=== PATIENT | female | born 1995 | race Caucasian/White ===

== ENCOUNTER 2020-11-09 02:11 | Outpatient (CLI) | payer OTHER, SELFPAY ==
[2020-11-09 11:08] LABS: Source Nasal/Nares
[2020-11-09 13:57] LABS: COVID-19 PCR Negative (Negative)
== END 2020-11-09 02:12 | disposition home or self-care (01) ==
LOC: LBO 02:11
PROVIDERS: PCP Nurse Practitioner Family; Visit Provider Obstetrics & Gynecology
DX: Z20.822 Contact with and (suspected) exposure to COVID-19 (principal); Z01.818 Encounter for other preprocedural examination
CPT/HCPCS: 87635

== ENCOUNTER 2020-11-09 03:05 | Outpatient (CLI) | payer OTHER, SELFPAY ==
[2020-11-09 08:29] LABS: Abs Immature Grans 0.03 10^3/uL (0.0-0.06); Absolute Basophil Count 0.05 10^3/uL (0.0-0.2); Absolute Eosinophil Count 0.08 10^3/uL (0.0-0.7); Absolute Lymphocyte Count 1.16 10^3/uL (1.2-3.4); Absolute Monocyte Count 0.71 10^3/uL (0.1-0.8); Absolute Neutrophil Count 5.63 10^3/uL (1.2-6.7); Basophils % 0.7; HCT 46.3 % (36.0-46.0); HGB 15.3 g/dL (11.2-15.7); Immature Grans % 0.4; Lymphocytes % 15.1; MCH 30.4 pg (27.0-33.0); MCV 91.9 fL (80-95); MPV 9.6 fL (8.0-11.0); Monocytes % 9.3; Neutrophils % 73.5; Nucleated RBC 0 %; Platelet Count 208 10^3/uL (130-400); RBC 5.04 10^6/uL (3.93-5.22); RDW 12.5 % (11.7-14.6); RDW-SD 42.5 fL; WBC 7.66 10^3/uL (4.4-10.8)
[2020-11-09 08:43] LABS: Hemoglobin A1C 5.2 % (<5.7)
[2020-11-09 09:33] LABS: TSH 1.75 uIU/mL (0.36-3.74)
== END 2020-11-09 03:06 | disposition home or self-care (01) ==
LOC: LBO 03:05
PROVIDERS: PCP Nurse Practitioner Family; Visit Provider Obstetrics & Gynecology
DX: N83.201 Unspecified ovarian cyst, right side (principal); Z13.1 Encounter for screening for diabetes mellitus; Z13.220 Encounter for screening for lipoid disorders; Z01.818 Encounter for other preprocedural examination; Z01.812 Encounter for preprocedural laboratory examination
CPT/HCPCS: 36415; 86850; 86900; 86901; 83036; 84443; 85025

== ENCOUNTER 2020-11-11 06:10 | Day surgery (SDC) | payer OTHER, SELFPAY ==
[2020-11-11] VITALS (9 sets, daily range): BP systolic 99–128; BP diastolic 60–86; PULSE 77–137; RESP 11–25; TEMP 36.1–37.1; O2SAT 98–100; BMI 23.8
--- NOTE | 2020-11-11 07:10 | W.ANESPRE ---
General Info Date of Service Date Performed: 11/11/20 Height: 5 ft 1 in Weight: 57.3 kg Body Mass Index (BMI): 23.8 Surgical Procedure: Operation Date: 11/11/20 07:40 Proposed Procedures Side Surgeon p Ovarian Cystectomy Laparoscopic Right Johana Paz DO Meds Allergies and Home Medications Allergies Allergy/AdvReac Type Severity Reaction Status Date / Time No Known Allergies Allergy Verified 11/11/20 06:22 Home Medication Medication Instructions Recorded norethindrone-e.estradiol-iron 1 tab-cap PO DAILY tab-cap 07/12/17 [Estrostep Fe-28 Tablet] naproxen 500 mg PO BID PRN #30 tab-cap 10/04/17 Current Visit Medications: Current Medications Generic Name Dose Route Start Last Admin Trade Name Freq PRN Reason Stop Dose Admin Ringer's Solution 1,000 mls @ 125 mls/hr 11/11/20 06:00 IV 12/10/20 23:59 INFUSION DWAINE IV Miscellaneous Supplies 1 each 11/11/20 06:00 Iv Access IV 12/10/20 23:59 DIRECTED DWAINE Sodium Chloride 0 ml 11/11/20 06:00 Normal Saline Flush 10 Ml Syr IV 12/10/20 23:59 PRN PRN Sodium Chloride 0 ml 11/11/20 06:00 Normal Saline 10 Ml Vial IJ 12/10/20 23:59 DIRECTED PRN Sterile Water 0 ml 11/11/20 06:00 Water,Injection,Sterile 10 Ml Vial IJ 12/10/20 23:59 DIRECTED PRN PFSH Active Problems Active Problems: Problem Status Onset Code Elevated blood pressure reading in office without diagnosis of hypertension R03.0 Right ovarian cyst N83.201 Generalized anxiety disorder F41.1 Screening cholesterol level Z13.220 Diabetes mellitus screening Z13.1 Encounter for annual physical exam Z00.00 Hearing disorder 10/ H91.90 Medical History Medical History Elevated blood pressure reading in office without diagnosis of hypertension Right ovarian cyst Tobacco Smoking/Tobacco Use Status: Never Alcohol Alcohol Intake: current Alcohol intake frequency: holidays/special occasions only Substance Use Substance use: Never Substance use type: does not use Vital Signs and Lab Results Vital Signs Most Recent Vital Signs in EMR: Most Recent Vital Signs Temp Pulse Resp BP Pulse Ox 37.1 C 137 H 16 128/82 98 11/11/20 06:23 11/11/20 06:23 11/11/20 06:23 11/11/20 06:23 11/11/20 06:23 Lab Results Blood Type / Crossmatch: Patient ABO/Rh A Positive 11/09/20 08:17 11/09/20 Antibody Screen NEGATIVE 11/09/20 08:17 11/09/20 Complete Blood Count: White Blood Count 7.66 10^3/uL (4.4-10.8) 11/09/20 08:17 11/09/20 Red Blood Count 5.04 10^6/uL (3.93-5.22) 11/09/20 08:17 11/09/20 Hemoglobin 15.3 g/dL (11.2-15.7) 11/09/20 08:17 11/09/20 Hematocrit 46.3 % (36.0-46.0) H 11/09/20 08:17 11/09/20 Platelet Count 208 10^3/uL (130-400) 11/09/20 08:17 11/09/20 Complete Metabolic Panel: Hemoglobin A1c 5.2 % (<5.7) 11/09/20 08:17 11/09/20 Liver Function Panel: No Data to Display Coagulation Panel: No Data to Display Cardiac Panel: No Data to Display Arterial Blood Gas: No Data to Display Venous Blood Gas: No Data to Display Pancreas Panel: No Data to Display Thyroid Panel: Thyroid Stimulating Hormone (TSH) 1.75 uIU/mL (0.36-3.74) 11/09/20 08:17 11/09/20 Infectious Disease: Coronavirus (COVID-19)(PCR) Negative (Negative) 11/09/20 08:14 11/09/20 Coronavirus 2019 Source Nasal/Nares 11/09/20 08:14 11/09/20 Blood Cultures: No Data to Display Toxicology Panel: No Data to Display Panel: No Data to Display Anesthesia Assessment and Plan Anesthesia History Personal History: No History of Anesthesia Complications Family History: No Family History of Anesthesia Complications Exercise Tolerance Exercise Tolerance: Metabolic Equivalents>4 Pertinent Negatives Pertinent Negatives: No Symptoms of GERD, No Major Cardiovascular Symptoms or Complaints, No Major Pulmonary Symptoms or Complaints and No History of CVA/TIA Cardiac & Pulmonary Exam Cardiac Exam: Normal S1/S2 Heart Sounds Pulmonary Exam: Clear Bilateral Breath Sounds Airway Exam Known Difficult Airway: No Mallampati Class: 2 Mouth Opening: Normal (> 3cm) Thyromental Distance: Greater than 3 cm Neck Range of Motion: Full ROM Neck Circumference: Normal Teeth Condition: Normal Dentition ASA Classification ASA Score: ASA 1 Emergency Case?: No NPO Status NPO Status: NPO Clears >2 hours, Solids >8 hours Status Status: Negative HCG Anesthesia Plan Resuscitation Status: Full Code Anesthesia Technique: General Anesthesia Airway Planned: Endotracheal Tube Monitors Used: Standard Monitors
[2020-11-11] MEDS: Lactated Ringers 1,000 ML 125 ML IV (07:11)
[2020-11-11] MEDS: Bupivacaine 0.5% Pres-Free 30 ML VIAL (08:30)
--- NOTE | 2020-11-11 09:15 | ROE_ITS ---
Date of service: 11/11/20 Time of Service: 09:15 Operative Note Operative Note DATE OF PROCEDURE: 11/11/20 PRE-OP DIAGNOSIS: Right ovarian cyst, suspect dermoid POST-OP DIAGNOSIS: same PROCEDURE: Operative laparoscopy with right ovarian cystectomy SURGEON: Johana Paz ASSISTING SURGEON: Luisana Gant ANESTHESIA TYPE: General LMA/ETT Refer to Anesthesia Record ESTIMATED BLOOD LOSS: 50 PATHOLOGY: other (Right ovarian cyst) COMPLICATIONS: None Patient was transported to: PACU Patient's condition: stable Indications: 5 x 8 cm right complex ovarian cyst suspicious for dermoid with symptoms Findings: Normal-appearing tubes, uterus, left ovary normal. Right ovary enlarged, approximately 8 cm in greatest dimension Procedure Description: Patient was taken the operating suite with an IV running where she is placed in the dorsal supine position and endotracheal intubation performed for the administration of general anesthesia with ease. She was then placed in the modified dorsolithotomy position in [facility]. Exam under anesthesia revealed a right adnexal fullness. Uterus is midline and mobile. Patient was prepped and draped in the usual sterile fashion. Ramachandran catheter inserted for continuous bladder drainage. At this point speculum was inserted to the vaginal vault and a single-tooth tenaculum used to grasp the anterior lip of the cervix. A Nebula uterine manipulator was placed within. At this point speculu m was removed and attention was returned to the abdomen. After infiltration with half percent Marcaine and infraumbilical skin incision was made. The anterior abdominal wall was elevated. Orogastric tube had been placed for removal of gastric contents. A varies needle was directly inserted into the abdomen and with CO2 gas to a maximum pressure of 15 mmHg and pneumoperitoneum was created. Once pneumoperitoneum was created a bladeless 1012 sleeve and trocar, Optiview, was placed into the abdomen under direct visualization. At this point inspection of the abdomen was undertaken uterus was midline and mobile. Left fallopian tube and ovary are normal. Right fallopian tube is normal. Right ovary is significantly enlarged approximately 8 cm and freely mobile. There is no evidence of pelvic adhesions or endometriosis. At this point a second and third right and left lower quadrant trocar site were placed under direct visualization after infiltration of half percent Marcaine. Attention was turned to the right ovary which was elevated and incised with cautery. In a meticulous fashion with blunt and sharp dissection along with [place] dissection the right ovarian cyst was shelled out from the underlying ovarian tissue. Base of the cyst that cystectomy at the ovary was inspected, cauterized to achieve hemostasis. At this point an Endopouch was placed into the abdomen and the free-floating ovarian cyst was removed to the anterior abdominal wall. Due to the size of the ovarian cyst, after the Endopouch was exteriorized. An incision was made into the cyst and cyst fluid removed in order to collapse the cyst and remove it from the anterior abdominal port. There was noted to be fat and hair consistent with dermoid. There was no spillage intra-abdominally nor was there is spillage into the subcutaneous tissue. At this point CO2 gas was resumed for recreation of pneumoperitoneum. The uterus was elevated. The ovarian cyst base was inspected and found to be hemostatic. The abdomen was i rrigated with copious amounts of normal saline. Again ovarian cyst base inspected and found to be hemostatic. At this point the procedure was terminated she okay to gas was removed and all ports were also removed. The infraumbilical fascial incision was closed using 0 Vicryl suture. Skin edges were reapproximated and sterile dressings placed. Hulka uterine manipulator and Ramachandran catheter were removed and the patient was returned to the supine position. She woke from anesthesia with ease and was taken recovery room in stable condition. EBL: 50 cc Complications: None apparent Pathology: Right ovarian cyst for examination.
--- NOTE | 2020-11-11 09:58 | OVAR_PTH ---
PATIENT: Roxane Ramsey LOC: [facility] U#:[id number] AGE/SX: 24/F ROOM: RE11/11/[address]: Johana Paz DO : 1995 BED: DIS: 11/11/2020 SPEC #: [id number] RECD: 11/11/20 12:25 STATUS: CODEY REQ #: [id number] RAMSEY: 11/11/20 09:[address]: Johana Paz DEPT: Surgical Specimen RECD BY: Zoë Gould ENTERED: 11/11/20 12:26 SP TYPE: FELICITAS MAHAJAN DR: Rafael Cronin NP Tissues: 1 - OVARY BIOPSY Procedures: GROSS AND MICRO LEVEL 4 Comments: [id number]
[2020-11-11] MEDS: fentaNYL 100 MCG/2 ML VIAL IVP (10:10)
--- NOTE | 2020-11-11 11:35 | W.ANESPOSTOP ---
Postoperative Evaluation Date, Time and Location Date Performed: 11/11/20 Time Performed: 11:36 Patient Location: Day Surgery Unit Vital Signs Most Recent Imported Vital Signs: Most Recent Vital Signs Temp Pulse Resp BP Pulse Ox 36.2 C L 99 H 18 123/80 100 11/11/20 11:10 11/11/20 11:10 11/11/20 11:10 11/11/20 11:10 11/11/20 11:10 Pain Score Most Recent Pain Score: Most Recent Pain Score Pain Level 2 11/11/20 11:10 Assessment Mental Status: Awake (Alert & Oriented to Patient Baseline) Airway and Respiratory Function: Patent airway with normal (patient baseline) respiratory exam Cardiovascular Function: Hemodynamically Stable Hydration Status: Adequately Hydrated Nausea & Vomiting: No Nausea or Vomiting Pain: Pain is tolerable per patient Peripheral Nerve Block: Patient did not receive a nerve block
== END 2020-11-11 12:07 | disposition home or self-care (01) ==
PROVIDERS: PCP Nurse Practitioner Family; Visit Provider Obstetrics & Gynecology
PROC: (CPT 58662; principal; 2020-11-11 07:30)
DX: D27.0 Benign neoplasm of right ovary (principal); Z98.890 Other specified postprocedural states
CPT/HCPCS: 58662; 88305; J1100; J1885; J2001; J2250; J2405; J2704; J3010

== ENCOUNTER 2021-03-31 03:00 | Outpatient (CLI) | payer OTHER, SELFPAY ==
[2021-04-01 10:06] LABS: COVID-19 RT-PCR UVMMC Result Negative (Negative)
== END 2021-03-31 03:01 | disposition home or self-care (01) ==
LOC: LBO 03:01
PROVIDERS: PCP Nurse Practitioner Family; Visit Provider Nurse Practitioner Family
DX: Z20.822 Contact with and (suspected) exposure to COVID-19 (principal)
CPT/HCPCS: U0003

== ENCOUNTER 2022-05-13 11:43 | Outpatient (REF) | payer OTHER, SELFPAY ==
--- NOTE | 2022-05-13 08:20 | PAPFT_PTH ---
PATIENT: Roxane Ramsey LOC: [facility] U#:[id number] AGE/SX: 26/F ROOM: RE05/13/[address]: Johana Paz DO : 1995 BED: DIS: 05/13/2022 SPEC #: [id number] RECD: 05/13/22 12:56 STATUS: CODEY REQ #: [id number] RAMSEY: 05/13/22 08:[address]: Johana Paz DEPT: [facility] Cytology RECD BY: Zoë Gould ENTERED: 05/13/22 12:56 SP TYPE: PAPFT OTHR DR: Rafael Cronin, LAZARO Tissues: 1 - CX/ENDOCX FOR PAP SMEARS Procedures: PAP THIN PREP/UVM Screening Comments: [id number] (CHLAMYDIA/GC)
[2022-05-16 12:57] LABS: Chlamydia Result Negative (Negative); GC Result Negative (Negative)
== END 2022-05-13 11:44 | disposition home or self-care (01) ==
LOC: LBN 11:43
PROVIDERS: PCP Nurse Practitioner Family; Visit Provider Obstetrics & Gynecology
DX: Z12.4 Encounter for screening for malignant neoplasm of cervix (principal); Z11.3 Encounter for screening for infections with a predominantly sexual mode of transmission
CPT/HCPCS: 87491; 87591; 88142

== ENCOUNTER 2023-02-10 01:28 | Outpatient (CLI) | payer OTHER, SELFPAY ==
[2023-02-10 10:07] LABS: ESR 9 mm/hr (0-20)
[2023-02-10 10:31] LABS: Uric Acid 3.3 mg/dL (2.6-6.0)
[2023-02-10 17:47] LABS: Rheumatoid Factor <8.6 IU/mL (<12.0)
[2023-02-13 14:57] LABS: ANA Interpretation Negative (Negative)
== END 2023-02-10 01:29 | disposition home or self-care (01) ==
LOC: LBO 01:29
PROVIDERS: PCP Nurse Practitioner Family; Visit Provider Family Medicine
DX: I73.00 Raynaud's syndrome without gangrene (principal)
CPT/HCPCS: 36415; 85652; 84550; 86038; 86431

== ENCOUNTER 2024-07-02 04:01 | Outpatient (CLI) | payer OTHER, SELFPAY ==
[2024-07-02 16:00] LABS: Panorama Kit Sent via Fed Ex
[2024-07-02 16:22] LABS: Abs Immature Grans 0.05 10^3/uL (0.0-0.06); Absolute Monocyte Count 0.87 10^3/uL (0.1-0.8); Basophils % 0.4 %; Eosinophils % 0.4 %; HCT 39.7 % (36.0-46.0); HGB 13.3 g/dL (11.2-15.7); Immature Grans % 0.4 %; Lymphocytes % 16.1 %; MCH 31.4 pg (27.0-33.0); MCHC 33.5 % (32.0-36.0); MCV 94 fL (80-95); Monocytes % 7.8 %; Neutrophils % 74.9 %; Platelet Count 239 10^3/uL (130-400); RBC 4.23 10^6/uL (3.93-5.22); RDW 13.2 % (11.7-14.6); RDW-SD 45.5 fL; WBC 11.17 10^3/uL (4.4-10.8)
[2024-07-02 16:41] LABS: Absolute Basophil Count 0.04 10^3/uL (0.0-0.2); Absolute Eosinophil Count 0.04 10^3/uL (0.0-0.7); Absolute Neutrophil Count 8.37 10^3/uL (1.2-6.7)
[2024-07-02 17:26] LABS: ALT 25 U/L (14-59); AST 17 U/L (15-37); Albumin 3.4 g/dL (3.4-5.0); Alkaline Phosphatase 52 U/L (46-116); BUN 11 mg/dL (7-18); Bilirubin, Total 0.2 mg/dL (0.2-1.0); CREATININE 0.7 mg/dL (0.55-1.02); Calcium 9.1 mg/dL (8.5-10.1); Chloride 105 mmol/L (98-107); Estimated GFR 122.25 (mL/min/1.73m2); Glucose 105 mg/dL (74-106); Potassium 3.6 mmol/L (3.5-5.1); Sodium 139 mmol/L (136-145); Total Protein 7.4 g/dL (6.4-8.2)
[2024-07-04 08:41] LABS: Hepatitis B Surface Ag Negative (Negative)
[2024-07-04 09:25] LABS: Hepatitis C Ab w Rflx HCV PCR Negative (Negative)
[2024-07-04 10:11] LABS: HIV-1/2 Ag & Ab Screen Negative (Negative)
[2024-07-04 11:30] LABS: Rubella IgG Ab (UVM) Positive (See Note); Varicella IgG Antibody Positive (See Note)
[2024-07-04 14:23] LABS: Chlamydia Result Negative (Negative); GC Result Negative (Negative)
[2024-07-05 17:40] LABS: Syphilis IgG w/Reflex Nonreactive (Nonreactive)
[2024-07-12 00:41] LABS: Specimen WB Whole Blood
[2024-07-18 16:34] LABS: Result Summary NEGATIVE; Specimen WB Whole Blood
== END 2024-07-02 04:02 | disposition home or self-care (01) ==
LOC: LBO 04:01
PROVIDERS: PCP Nurse Practitioner Family; Visit Provider Advanced Practice Midwife
DX: Z34.91 Encounter for supervision of normal pregnancy, unspecified, first trimester (principal); R03.0 Elevated blood-pressure reading, without diagnosis of hypertension
CPT/HCPCS: 36415; 80053; 81220; 81222; 81329; 86787; 86803; 86850; 86900; 86901; 87340; 87389; 87491; 87591; 85025; 86762; 86780

== ENCOUNTER 2024-07-02 14:20 | Outpatient (REF) | payer OTHER, SELFPAY ==
[2024-07-02 17:22] LABS: COMMENT (LAB VIEW ONLY) 18.49 mg/dL
[2024-07-02 17:24] LABS: PROTEIN < 6.0 mg/dL
== END 2024-07-02 14:21 | disposition home or self-care (01) ==
LOC: LBN 14:20
PROVIDERS: PCP Nurse Practitioner Family; Visit Provider Advanced Practice Midwife
DX: Z34.91 Encounter for supervision of normal pregnancy, unspecified, first trimester (principal); R03.0 Elevated blood-pressure reading, without diagnosis of hypertension
CPT/HCPCS: 82565; 84156; 87086

== ENCOUNTER 2024-10-19 10:25 | Outpatient (CLI) | payer OTHER, SELFPAY ==
[2024-10-19 10:47] VITALS: BP 116/76; PULSE 88; TEMP 37.1
[2024-10-19 10:51] VITALS: BP 116/76; PULSE 129
[2024-10-19 11:42] LABS: Glucose Negative (Negative)
--- NOTE | 2024-10-19 12:20 | W.OBNST ---
Date of service: 10/19/24 Time of Service: 12:21 NST Evaluation Reason for NST Reasons for Nonstress Test: OTHER, SEE COMMENT Reason for NST Other: R/O SROM Gestational Age Gestational Age in Weeks and Days: 27 Weeks and 4Days Test and Monitor Explained Test/Monitor Explained: Test Explained, Monitor Explained and Patient Verbalized Understanding Vital Signs Blood Pressure: 116/76 Pulse: 88 Temperature: 98.8 F NST Information Date on Monitor: 10/19/24 Time on Monitor: 10:42 Date off Monitor: 10/19/24 Time off Monitor: 11:03 Total Time on Monitor: 21 NST Interventions: PO Hydration NST Evaluation Patient States Movement: Present FHR Baseline: 145 Variability: Moderate 6-25 bpm Accelerations: 10x10 Decelerations: None NST Results: Reactive Note Ultrasound Done: N/A. NST Note Note: Reactive NST for a 27 week gestation. See separate note for evaluation of leaking fluid. NST Reviewed and Verified by: Didi Bazan
[2024-10-19 12:22] VITALS: BP 116/76; PULSE 88; TEMP 37.1
--- NOTE | 2024-10-19 12:22 | PGE_ITS ---
Date of Service Date of service: 10/19/24 Time of Service: 12:22 Assessment and Plan Assessment and plan (1) 27 weeks gestation of : Status: Acute (2) Suspected problem with amnion not found: Status: Acute Assessment and plan: A: IUP at 27 weeks 1 d No evidence for PPROM Reassuring surveillance Roxane was assessed for PPROM -- sterile speculum exam shows no evidence for ROM. ROM plus test also is negative. There is no clear cause of the fluid she felt expel earlier this morning, so I suspect it may be either thin physiologic discharge or vulvar moisture. UA is reassuring against UTI. Vaginitis panel and GC/CT testing is pending. P: - Roxane was given reassurance. She was instructed to follow-up for her routine appointment in 6 days, calling sooner with any concerns including fever, continued LOF, contractions, decreased FM or VB. Subjective Subjective Interval history since last seen: Roxane is a 28 year old at 27 weeks 1d gestation who presents to L&D for evaluation of LOF. For several days she has felt damp, but it wasn't until this morning that her underwear was stained. Several hours after waking up this morning, she felt a gush and noticed a 6 cm wet stain on her undwear that was streaked in the middle with white discharge. She has not had much fluid expel since then, nor has she needed to wear a pad. She has not been sexually active in the past few days. course has been uncomplicated. 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 / irritation / odor Urinary: no excessive urinary frequency, no dysuria or hematuria Objective Last Vital Signs Pulse 129 H 10/19/24 10:51 BP 116/76 10/19/24 10:51 Laboratory Results - last 24 hr 10/19/24 11:15 Urine Color Yellow Urine Clarity Sl Cloudy Urine pH 6.0 Ur Specific [place] 1.025 Urine Protein Negative Urine Ketones Negative Urine Blood Negative Urine Nitrite Negative Urine Bilirubin Negative Urine Urobilinogen 0.2 Ur Leukocyte Esterase Small H Urine RBC 3-5 H Urine WBC 5-10 Ur Epithelial Cells Many Urine Crystals Negative Urine Bacteria Moderate Urine Casts Negative Urine Mucus Negative Ur Culture Indicated? No/Sq. Contamination Urine Glucose Negative Membranes Rupture Negative Constitutional: well-nourished, well-developed, alert Respiratory: effort is unlabored Gastrointestinal: non-tender to palpation, tone normal without rigidity or gu arding, no masses Genitourinary: - external: no inflammation, no lesions - vagina: normal vault, no abnormal discharge (creamy white), no inflammatory lesions, no masses; SSE: no pooling, pH 4, no ferning - cervix: appearance healthy, no lesions, no discharge, no bleeding - uterus: gravid, normal shape, no contractions - anus: no lesions - perineum: within normal limits Skin and Subcutaneous Tissue: no rashes, no lesions, no areas of discoloration Fetus: 140 baseline, moderate variability, 10x10 accels, no decels Time Spent with Patient Time Spent with Patient: 35-49 minutes Time was spent: preparing to see the patient(eg.review tests), obtaining and/or reviewing separately otained hiistory, ordering medications,tests, procedures, indepentently interpreting results and counseling the patient
[2024-10-21 12:21] LABS: Chlamydia Result Negative (Negative); GC Result Negative (Negative)
== END 2024-10-19 12:20 | disposition other institution (70) ==
LOC: BCD 10:25 → OBS 10:45
PROVIDERS: PCP Nurse Practitioner Family; Visit Provider Advanced Practice Midwife
DX: Z3A.27 27 weeks gestation of pregnancy (principal); Z03.71 Encounter for suspected problem with amniotic cavity and membrane ruled out; O47.03 False labor before 37 completed weeks of gestation, third trimester
CPT/HCPCS: 84112; 87491; 87591; 59025; 81003; 81015; 87480; 87510; 87660; G0378

== ENCOUNTER 2024-10-25 01:03 | Outpatient (CLI) | payer OTHER, SELFPAY ==
[2024-10-25 09:59] LABS: HCT 36.2 % (36.0-46.0); HGB 12.3 g/dL (11.2-15.7); MCH 32.7 pg (27.0-33.0); MCHC 34.0 % (32.0-36.0); MCV 96 fL (80-95); MPV 9.4 fL (8.0-11.0); Platelet Count 217 10^3/uL (130-400); RBC 3.76 10^6/uL (3.93-5.22); RDW 12.9 % (11.7-14.6); RDW-SD 45.7 fL; WBC 11.92 10^3/uL (4.4-10.8)
[2024-10-25 10:02] LABS: Glucose,1 Hr (Glucola) 106 mg/dL (80-140)
== END 2024-10-25 01:04 | disposition home or self-care (01) ==
LOC: LBO 01:03
PROVIDERS: PCP Nurse Practitioner Family; Visit Provider Advanced Practice Midwife
DX: Z34.92 Encounter for supervision of normal pregnancy, unspecified, second trimester (principal)
CPT/HCPCS: 36415; 82950; 85027

== ENCOUNTER 2024-11-22 05:23 | Outpatient (CLI) | payer OTHER, SELFPAY ==
--- NOTE | 2024-11-22 05:30 | DI.US_ITS ---
Exam(s) US OB DUSTY WEIGHT EXAM: US OB DUSTY WEIGHT CLINICAL HISTORY: essential hypertension, , I10, Z34.90. TECHNIQUE: Transabdominal obstetrical ultrasound performed. COMPARISON: US US OB 2-3 TRIMESTER from 08/30/2024 FINDINGS:: Number of fetuses: 1 position: CEPHALIC Placental location: ANTERIOR No evidence of previa. BIOMETRIC DATA: BPD: 9.21cm, 37weeks 3days HC: 32.45cm, 36weeks 5days AC: 29.58cm, 33weeks 4days FL: 6.16cm, 32weeks EFW: 2,270.67g, 5lb 2.46oz, 90% Composite Age: 35weeks DARA: 12/27/2024 Heart Rate: 125bpm Amniotic fluid index: 13.35cm. Visually, amount of fluid is within normal limits. IMPRESSION: size is large for dates by approximately 3 weeks. EFW 90th percentile. DATA REPOSITORY:
== END 2024-11-22 05:43 ==
LOC: DI 05:23
PROVIDERS: PCP Nurse Practitioner Family; Visit Provider Advanced Practice Midwife
DX: I10 Essential (primary) hypertension (principal); Z34.93 Encounter for supervision of normal pregnancy, unspecified, third trimester; Z3A.37 37 weeks gestation of pregnancy
CPT/HCPCS: 76816

== ENCOUNTER 2024-12-20 14:15 | Outpatient (REF) | payer OTHER, SELFPAY | END 2024-12-20 14:16 | disposition home or self-care (01) | LOC: LBN 14:15 | PROVIDERS: PCP Nurse Practitioner Family; Visit Provider Advanced Practice Midwife | DX: Z34.93 Encounter for supervision of normal pregnancy, unspecified, third trimester (principal) | CPT/HCPCS: 87081 ==

== ENCOUNTER 2024-12-27 18:48 | Outpatient (CLI) | payer OTHER, SELFPAY ==
[2024-12-27 19:19] VITALS: BP 121/83; PULSE 88; TEMP 36.4
[2024-12-27 19:31] VITALS: BP 121/83; PULSE 88
--- NOTE | 2024-12-27 19:32 | W.OBNST ---
Date of service: 12/27/24 Time of Service: 19:33 NST Evaluation Reason for NST Reasons for Nonstress Test: DECREASED MOVEMENT Gestational Age Gestational Age in Weeks and Days: 37 Weeks and 0Days Test and Monitor Explained Test/Monitor Explained: Test Explained, Monitor Explained and Patient Verbalized Understanding NST Information Date on Monitor: 12/27/24 Time on Monitor: 19:08 NST Interventions: PO Hydration NST Evaluation Patient States Movement: Present FHR Baseline: 135 Variability: Moderate 6-25 bpm Accelerations: 15x15 Decelerations: None NST Results: Reactive Note Ultrasound Done: N/A. NST Note Note: Roxane is a 29 year old P0 who presents to L&D triage for evaluation of decreased movement. En route to the hospital, movement increased back to the normal range. She denies other complaints, including no regular contractions, no LOF, no VB. NST is reactive. She was given this reassurance of well-being, and was encouraged to call as needed with future concerns. NST Reviewed and Verified by: Didi Bazan
== END 2024-12-27 19:35 ==
LOC: BCD 18:48 → OBS 19:16
PROVIDERS: PCP Nurse Practitioner Family; Visit Provider Advanced Practice Midwife
DX: O36.8131 Decreased fetal movements, third trimester, fetus 1 (principal); Z3A.37 37 weeks gestation of pregnancy
CPT/HCPCS: 59025

== ENCOUNTER 2025-01-09 18:59 | Outpatient (CLI) | payer OTHER, SELFPAY ==
[2025-01-09 19:46] VITALS: TEMP 36.8
[2025-01-09 19:56] VITALS: BP 120/87; PULSE 96
[2025-01-09 20:03] VITALS: BP 120/87; PULSE 96; TEMP 36.8
--- NOTE | 2025-01-09 21:26 | W.OBNST ---
Date of service: 01/09/25 Time of Service: 21:26 NST Evaluation Reason for NST Reasons for Nonstress Test: OTHER, SEE COMMENT Reason for NST Other: ROM ruleout Gestational Age Gestational Age in Weeks and Days: 38 Weeks and 6Days Test and Monitor Explained Test/Monitor Explained: Test Explained, Monitor Explained and Patient Verbalized Understanding Vital Signs Blood Pressure: 120/87 Pulse: 96 Temperature: 98.2 F Weight: 160 lb Urine Results Urine Protein: Negative Urine Ketones: Negative Urine Glucose: Negative Urine Blood: Negative NST Information Date on Monitor: 01/09/25 Time on Monitor: 19:20 Date off Monitor: 01/09/25 Time off Monitor: 19:57 Total Time on Monitor: 37 NST Interventions: PO Hydration Contraction Frequency: 2-6 min, irregular NST Evaluation Patient States Movement: Present FHR Baseline: 130 Variability: Moderate 6-25 bpm Accelerations: 15x15 Decelerations: None NST Results: Reactive Note Ultrasound Done: N/A. NST Note Note: Roxane called this evening and reported that she had an episode last evening of leaking fluid after standing up after voiding. She has not noticed additional fluid leaking or contractions. I recommended that she come in for evaluation. Reactive NST. Mild contractions noted. neg pooling, neg nitrazine and neg ROM plus. SVE performed by RN. Cervix posterior. vertex high and cervix difficult to reach. Signs of labor reviewed. Roxane has a appointmnet in the morning and she was encouraged to attend. NST Reviewed and Verified by: Aby Grayson
[2025-01-09 21:28] VITALS: BP 120/87; PULSE 96; TEMP 36.8
== END 2025-01-09 19:24 | disposition home or self-care (01) ==
PROVIDERS: PCP Nurse Practitioner Family; Visit Provider Advanced Practice Midwife
DX: O47.03 False labor before 37 completed weeks of gestation, third trimester (principal); Z3A.38 38 weeks gestation of pregnancy
CPT/HCPCS: 84112; 59025

== ENCOUNTER 2025-01-15 18:02 | Inpatient (IN) | payer OTHER, SELFPAY ==
[2025-01-15] VITALS (10 sets, daily range): BP systolic 122–136; BP diastolic 82–98; PULSE 67–93; TEMP 36.6
[2025-01-15 16:48] LABS: Abs Immature Grans 0.04 10^3/uL (0.0-0.06); HCT 42.4 % (36.0-46.0); HGB 13.9 g/dL (11.2-15.7); Immature Grans % 0.4 %; MCH 30.6 pg (27.0-33.0); MCHC 32.8 % (32.0-36.0); MCV 93 fL (80-95); MPV 10.8 fL (8.0-11.0); Platelet Count 237 10^3/uL (130-400); RBC 4.54 10^6/uL (3.93-5.22); RDW 13.9 % (11.7-14.6); RDW-SD 47.3 fL; WBC 10.56 10^3/uL (4.4-10.8)
[2025-01-15 17:03] LABS: ALT 20 U/L (14-59); AST 16 U/L (15-37); Albumin 2.9 g/dL (3.4-5.0); Alkaline Phosphatase 245 U/L (46-116); Anion Gap 9.6 mmol/L (3-11); BUN 8 mg/dL (7-18); Bilirubin, Total 0.3 mg/dL (0.2-1.0); CO2 25.4 mmol/L (21.0-32.0); Calcium 9.1 mg/dL (8.5-10.1); Chloride 104 mmol/L (98-107); Glucose 75 mg/dL (74-106); LDH 182 U/L (81-234); Potassium 4.0 mmol/L (3.5-5.1); Sodium 139 mmol/L (136-145); Total Protein 7.3 g/dL (6.4-8.2); Uric Acid 3.4 mg/dL (2.6-6.0)
--- NOTE | 2025-01-15 18:03 | PDOC.NST_ITS ---
Date of service: 01/15/25 Time of Service: 18:03 NST Evaluation Reason for NST Reasons for Nonstress Test: DECREASED MOVEMENT and OTHER, SEE COMMENT Reason for NST Other: Rule out labor Gestational Age Gestational Age in Weeks and Days: 39 Weeks and 5Days Test and Monitor Explained Test/Monitor Explained: Test Explained and Monitor Explained Vital Signs Blood Pressure: 128/93 Pulse: 90 Temperature: 97.9 F Weight: 150 lb NST Information Date on Monitor: 01/15/25 Time on Monitor: 15:56 Date off Monitor: 01/15/25 Time off Monitor: 16:22 Total Time on Monitor: 26 NST Interventions: PO Hydration NST Evaluation Patient States Movement: Decreased FHR Baseline: 130 Variability: Moderate 6-25 bpm Accelerations: 15x15 Decelerations: None NST Results: Reactive Note Ultrasound Done: N/A. NST Note Note: Roxane reported regular contractions and decreased movement at home. She came in for NST. Reactive nST. Regular mod/strong contractions palpable every 2- 3 minutes. Admitted for observation of labor pattern and blood pressure. NST Reviewed and Verified by: Aby Grayson
--- NOTE | 2025-01-15 18:05 | W.PM.OBHPL1 ---
Date of service: 01/15/25 Time of Service: 18:05 Assessment and Plan Assessment and plan (1) Essential hypertension: Status: Acute Assessment and plan: Reviewed normal preeclampsia labs with Roxane and her , Jones. Will continue to monitor blood pressure readings. (2) Spontaneous onset of labor: Status: Acute Assessment and plan: We discussed options of expectant management and continued observation or labor induction. She prefers to stay at the center for observation and will consider induction of labor in the morning if indicated. Ambien PO offered at for sleep if needed. OB-HPI Labor/Delivery History of Present Illness Reason for Visit: NST Chief Complaint: Uterine Contractions; Decreased Movement , Associated Signs and Symptoms of Decreased Movement: discomfort with contractions. DARA Calculator Estimated Delivery Date Method Current WG Current Estimate 01/17/25 Ultrasound #1 39w 5d Other Estimates 01/15/25 LMP (Certain) 40w 0d Comments: Roxane came in reporting regular contractions and decreased movement. reactive NST obtained. Roxane had expressed desire for low intervention prenatally. BP 120s/90s History of Present Expected Delivery Route/Plan - CNM FOB - Jones Ramsey (first child together) BB no circ Hopes for low intervention experience but open to epidural if needed GBS negative Specific Issues/Plan 1.H/O White coat HTN vs cHTN; initial CMP and pr/cr ratio are nml 1A. Start ASA 12wks, 32wk EFW- 90%ile and DUSTY 13 2. H/O right-sided laparoscopic cystectomy 3.CfDNA- low risk, SMA & CF negative 4. Raynauds sundrome 5. History of anxiety - no current treatment 6. Right sciatica - referred to PT. Symptoms improved. PFSH All Active Problems (Updated 01/15/25 @ 18:09 by Aby Grayson CNM) Spontaneous onset of labor (Acute) Essential hypertension (Acute) (Acute) Elevated blood pressure reading in office without diagnosis of hypertension (Acute) Generalized anxiety disorder (Acute) no medications Medical History (Updated 01/15/25 @ 18:09 by Aby Grayson CNM) 27 weeks gestation of Hearing disorder (12/18/01) ENT EVAL 12/18/01 Raynaud's disease without gangrene one toe on each foot, rarely an issue Right ovarian cyst Surgical History Status post laparoscopy Operative laparoscopy with right ovarian cystectomy Family History (Updated 08/02/24 @ 15:51 by Luana Campos) Mother Essential hypertension Diabetes Personal history of malignant neoplasm UTERINE Hyperlipidemia Grandfather Essential hypertension Personal history of malignant neoplasm THYROID Hyperlipidemia Grandfather Essential hypertension Grandmother Essential hypertension Hyperlipidemia Cancer Grandmother Diabetes Hyperlipidemia Father Hypertension Social History (Updated 07/02/24 @ 14:25 by Patricia Victoria CNM) Smoking/Tobacco Use Status: Never Smoking risk assessment performed?: Yes Alcohol Intake: former Drug use: Never Substance use type: does not use Household members: spouse Housing: house Pets and animals: Yes Pets and animals: cat(s) and dog(s) What type of physical activity do you participate in: walking Frequency: 1-2 times per week Special susan needs: No Agree to transfusion: Yes Do you feel safe at home: Yes Do you feel safe in your relationship?: Yes History History 1 Para 0 Hx # Term Pregnancies 0 Multiple births 0 Hx # Pregnancies 0 Ectopic pregnancies 0 AB induced 0 Hx Number of Living Children 0 AB spontaneous 0 Meds Allergies and Home Medications Allergies Allergy/AdvReac Type Severity Reaction Status Date / Time No Known Allergies Allergy Verified 01/10/25 08:33 Home Medications Medication Instructions Recorded Confirmed Type vits no.126-ferrous fum tab PO DAILY 05/10/24 01/10/25 History 28 mg iron-folic acid 800 mcg tablet (Classic ) aspirin 81 mg tablet,delayed 162 mg PO DAILY 08/02/24 01/15/25 History release (Adult Aspirin Regimen) Exam Physical Exam Vital signs: Pulse BP 89 127/94 H 01/15/25 16:11 01/15/25 16:11 Vital Signs Reviewed: Yes Constitutional Constitutional: no acute distress Detailed Labor and Delivery Exam Angeles Score: Cervical Points Exam 0 1 2 3 Dilation Closed 1-2cm 3-4 cm 5-6cm Effacement 0-30% 40-50% 60-70% 80% Consistency Firm Medium Soft Station -3 -2 -1,0 +1,+2 Position Posterior Mid Anterior Contraction Frequency(min): every 2-3 minutes Contraction Duration(sec): 60 Contraction Intensity: Moderate Comments: Roxane expressed desire to avoid cervical checks unless necessary. vertex by leopolds. Will defer exam until signs of active labor. Fetus A Heart Rate Baseline: 130 Monitor Accelerations: 15 X 15 Monitor Decelerations: None Variability: Moderate (6-25 BPM) Presentation: Cephalic Categories: Category I Est. Weight: 7 lb HEENT Exam HEENT Exam: Normal Respiratory Exam Respiratory Exam: Normal Cardiovascular Exam Cardiovascular Exam: Normal Abdominal Exam Abdominal Exam: Normal Extremities Exam Extremities Exam: Normal Skin Exam Skin Exam: Normal Psychiatric Exam Psychiatric Exam: Normal Results Abnormal Lab Findings: Abnormal Labs 01/15/25 16:35 Absolute Neutrophils 7.71 H Absolute Monocytes 0.84 H Alkaline Phosphatase 245 H Albumin 2.9 L Risk Assessment Risk for Shoulder Dystocia Historical/Initial OB: NEGATIVE FOR: Pelvic Abnormality, Pre- BMI>30, Previous Shoulder Dystocia or Previous Macrosomia 36 Weeks: NEGATIVE FOR: Current Gestational DM, EFW>4500gms or Maternal Weight Gain>40lbs 40 Weeks: NEGATIVE FOR: EFW> 4500 gms, Maternal Weight Gain >40lb or Post Dates Increased Risk?: No Risk for Pre-Eclampsia Daily Dose ASA Indicated: Yes Date Initiated/Initials: 07/02 RG Yes, if one or more: POSTIVE FOR: Chronic HTN; NEGATIVE FOR: Hx Pre-E/Gest HTN, Multiple Gestation, Pre-gestational DM, Renal Disease, Systemic Lupus or APA Syndrome Yes, if 2 or more: POSITIVE FOR: Nulliparity; NEGATIVE FOR: Age>= 35 yrs, >10yr btwn pregnancies, BMI>30, ethinicty, Mother/Sister w/ Pre-E or Previous IUGR Risk for Post- Hemorrhage Initial: NEGATIVE FOR: Multiple Gestation, Previous PPH, Known Clotting Deficiency, Grand Multiparity or Anticoagulation 36 Weeks: NEGATIVE FOR: Anemia, hgb<10, Low platelets(thrombocytopenia), Gestational HTN or Pre-E, Polyhydraminios or EFW>4500gms 40 Weeks: NEGATIVE FOR: Anemia, hgb<10, Low platelets (thrombocytopenia), Gestation HTN or Pre-E, Polyhydraminios or EFW>4500gms At Risk?: No Risks Reviewed Risks Reviewed Upon Admission: Yes
[2025-01-15 18:15] LABS: Prot/Crea Ur Ratio 0.36
--- NOTE | 2025-01-15 23:55 | PGE_ITS ---
Date of service: 01/15/25 Time of Service: 23:55 Informed Consent Informed Consent: Risk,Benefits,Alternatives Discussed (AROM or continued observation of labor pattern) Pelvic Exam Dilation: 5 Effacement (%): 100 station: 0 Position: GA Cervix Position: mid Consistency: soft Vaginal Exam Presentation: Cephalic Contractions Monitor Mode: External Contraction Frequency(min): every 2-3 Contraction Duration(sec): 60 Intensity: Moderate/Strong Fetus A Monitor: External (US) Heart Rate Baseline: 120 Presentation: Cephalic Variability: Moderate (6-25 BPM) Categories: Category I FHR Rhythm: Regular Accelerations: 15 X 15 Decelerations: None Amniotic Membrane Status: Intact Assessment and Plan Assessment and plan (1) Spontaneous onset of labor: Status: Acute Assessment and plan: Comfort measures. Anticipate . Jackson Pinto is present on the unit and aware of Roxane's status. Objective Abnormal lab results 01/15/25 Range/Units 16:35 Absolute Neutrophils 7.71 H (1.2-6.7) 10^3/uL Absolute Monocytes 0.84 H (0.1-0.8) 10^3/uL Alkaline Phosphatase 245 H (46-116) U/L Albumin 2.9 L (3.4-5.0) g/dL Pulse BP 93 H 127/86 01/15/25 23:04 01/15/25 23:04 Laboratory Results WBC 10.56 10^3/uL (4.4-10.8) 01/15/25 16:35 RBC 4.54 10^6/uL (3.93-5.22) 01/15/25 16:35 Hgb 13.9 g/dL (11.2-15.7) 01/15/25 16:35 Hct 42.4 % (36.0-46.0) 01/15/25 16:35 MCV 93 fL (80-95) 01/15/25 16:35 MCH 30.6 pg (27.0-33.0) 01/15/25 16:35 MCHC 32.8 % (32.0-36.0) 01/15/25 16:35 RDW 13.9 % (11.7-14.6) 01/15/25 16:35 Plt Count 237 10^3/uL (130-400) 01/15/25 16:35 MPV 10.8 fL (8.0-11.0) 01/15/25 16:35 Immature Gran % 0.4 % 01/15/25 16:35 Neutrophils % 72.9 % 01/15/25 16:35 Lymphocytes % 18.2 % 01/15/25 16:35 Monocytes % 8.0 % 01/15/25 16:35 Eosinophils % 0.2 % 01/15/25 16:35 Basophils % 0.3 % 01/15/25 16:35 Nucleated RBC % 0.0 % (0.0-0.3) 01/15/25 16:35 Absolute Neutrophils 7.71 10^3/uL (1.2-6.7) H 01/15/25 16:35 Absolute Lymphocytes 1.92 10^3/uL (1.2-3.4) 01/15/25 16:35 Absolute Monocytes 0.84 10^3/uL (0.1-0.8) H 01/15/25 16:35 Absolute Eosinophils 0.02 10^3/uL (0.0-0.7) 01/15/25 16:35 Absolute Basophils 0.03 10^3/uL (0.0-0.2) 01/15/25 16:35 Sodium 139 mmol/L (136-145) 01/15/25 16:35 Potassium 4.0 mmol/L (3.5-5.1) 01/15/25 16:35 Chloride 104 mmol/L (98-107) 01/15/25 16:35 Carbon Dioxide 25.4 mmol/L (21.0-32.0) 01/15/25 16:35 Anion Gap 9.6 mmol/L (3-11) 01/15/25 16:35 BUN 8 mg/dL (7-18) 01/15/25 16:35 Creatinine 0.7 mg/dL (0.55-1.02) 01/15/25 16:35 Est GFR (CKD-EPI 2020) 121.49 (mL/min/1.73m2) 01/15/25 16:35 Glucose 75 mg/dL (74-106) 01/15/25 16:35 Uric Acid 3.4 mg/dL (2.6-6.0) 01/15/25 16:35 Calcium 9.1 mg/dL (8.5-10.1) 01/15/25 16:35 Total Bilirubin 0.3 mg/dL (0.2-1.0) 01/15/25 16:35 AST 16 U/L (15-37) 01/15/25 16:35 ALT 20 U/L (14-59) 01/15/25 16:35 Alkaline Phosphatase 245 U/L (46-116) H 01/15/25 16:35 Lactate Dehydrogenase 182 U/L (81-234) 01/15/25 16:35 Total Protein 7.3 g/dL (6.4-8.2) 01/15/25 16:35 Albumin 2.9 g/dL (3.4-5.0) L 01/15/25 16:35 Ur Random Creatinine 24.35 mg/dL 01/15/25 16:30 U Random Total Protein 8.8 mg/dL 01/15/25 16:30 U [place] Prot/Creat Ratio 0.36 01/15/25 16:30 ABO/Rh A Positive 01/15/25 16:35 Antibody Screen NEGATIVE 01/15/25 16:35 Subjective Patient Reports: New Complaints Interval history since last seen: Roxane reports strong contractions every 2-3 minutes. She requests to use nitrous oxide for pain relief. B.P. 122-136/82-98 Results Hemoglobin/Hematocrit: Hgb 13.9 g/dL (11.2-15.7) 01/15/25 16:35 Hct 42.4 % (36.0-46.0) 01/15/25 16:35 Abnormal Lab Findings: Abnormal Labs 01/15/25 16:35 Absolute Neutrophils 7.71 H Absolute Monocytes 0.84 H Alkaline Phosphatase 245 H Albumin 2.9 L
[2025-01-16] VITALS (228 sets, daily range): BP systolic 103–132; BP diastolic 59–90; PULSE 71–168; RESP 16–18; TEMP 36.4–37.8; O2SAT 94–100; BMI 28.3
[2025-01-16] MEDS: Lactated Ringers 1,000 ML 500 ML IV (02:00)
--- NOTE | 2025-01-16 02:30 | ANES.PREOP_ITS ---
General Info Date of Service Date Performed: 01/16/25 Height: 5 ft 1 in Weight: 68.039 kg Body Mass Index (BMI): 28.3 Meds Allergies and Home Medications Allergies Allergy/AdvReac Type Severity Reaction Status Date / Time No Known Allergies Allergy Verified 01/10/25 08:33 Home Medication Medication Instructions Recorded vits no.126-ferrous fum tab PO DAILY 05/10/24 28 mg iron-folic acid 800 mcg tablet (Classic ) aspirin 81 mg tablet,delayed 162 mg PO DAILY 08/02/24 release (Adult Aspirin Regimen) Current Visit Medications: Current Medications Generic Name Dose Route Start Last Admin Trade Name Freq PRN Reason Stop Dose Admin Ephedrine Sulfate 5 mg 01/16/25 02:30 Ephedrine 50 Mg/Ml Vial IVP DIRECTED PRN Fentanyl/Ropivacaine 200 ml 01/16/25 01:45 Fentanyl/Ropivacaine 2 Mcg/Ml And 0.1% 200 Ml [place] EP DIRECTED DWAINE Ringer's Solution 500 mls @ 500 mls/hr 01/16/25 01:32 IV 01/16/25 02:31 BOLUS ONE Ringer's Solution 500 mls @ 500 mls/hr 01/16/25 01:52 IV 01/16/25 02:51 BOLUS ONE Ringer's Solution 1,000 mls @ 125 mls/hr 01/16/25 02:00 IV INFUSION DWAINE Naloxone HCl 2 mg/ Sodium 500 mls @ 8.505 mls/hr 01/16/25 02:30 Chloride IV INFUSION PRN Pruritis or Nausea/Vomiting 0.5 MCG/KG/HR Nalbuphine HCl 5 mg/ Sodium 50.5 mls @ 100 mls/hr 01/16/25 02:30 Chloride IVPB Q3H PRN PRN Pruritis IV Miscellaneous Supplies 1 each 01/15/25 18:15 Iv Access IV DIRECTED DWAINE Naloxone HCl 0.04 mg 01/16/25 02:30 Naloxone 0.4 Mg/Ml Vial IVP PRN PRN Pruritis or Nausea/Vomiting Naloxone HCl 0 mg 01/16/25 02:30 Naloxone 0.4 Mg/Ml Vial IVP DIRECTED PRN Respiratory Depression/Arrest Ondansetron HCl 4 mg 01/16/25 02:30 Ondansetron 4 Mg/2 Ml Vial IVP Q6H PRN PRN Nausea Sodium Chloride 0 ml 01/15/25 18:02 Normal Saline Flush 10 Ml Syr IVP PRN PRN Sodium Chloride 0 ml 01/15/25 20:00 Normal Saline Flush 10 Ml Syr IVP BID DWAINE Sodium Chloride 0 ml 01/15/25 18:02 Normal Saline 10 Ml Vial IJ DIRECTED PRN Zolpidem Tartrate 10 mg 01/15/25 18:22 Zolpidem 10 Mg Tab PO HS PRN PRN PFSH Active Problems Active Problems: Problem Status Onset Code Spontaneous onset of labor Acute Essential hypertension Acute I10 Acute Z34.90 Elevated blood pressure reading in office without diagnosis of hypertension Acute R03.0 Generalized anxiety disorder Acute F41.1 Medical History Medical History (Updated 01/15/25 @ 18:09 by Aby Grayson CNM) 27 weeks gestation of Hearing disorder (12/18/01) ENT EVAL 12/18/01 Raynaud's disease without gangrene one toe on each foot, rarely an issue Right ovarian cyst Surgical History Surgical History Status post laparoscopy Operative laparoscopy with right ovarian cystectomy Tobacco Smoking/Tobacco Use Status: Never Alcohol Alcohol Intake: former Substance Use Substance use: Never Substance use type: does not use Prental History History 2 1 Para 0 Hx # Term Pregnancies 0 Multiple births 0 Hx # Pregnancies 0 Ectopic pregnancies 0 AB induced 0 Hx Number of Living Children 0 AB spontaneous 0 Vital Signs and Lab Results Vital Signs Most Recent Vital Signs in EMR: Most Recent Vital Signs Temp Pulse Resp BP Pulse Ox 36.4 C L 94 H 18 107/64 97 01/16/25 00:35 01/16/25 02:29 01/16/25 00:35 01/16/25 02:29 01/16/25 02:26 Lab Results 01/15/25 16:35 01/15/25 16:35 Blood Type / Crossmatch: 2 Antibody Screen NEGATIVE 01/15/25 Complete Blood Count: 2 WBC, (4.4-10.8) 10.56 10^3/uL 01/15/25, 16:35 RBC, (3.93-5.22) 4.54 10^6/uL 01/15/25, 16:35 Hgb, (11.2-15.7) 13.9 g/dL 01/15/25, 16:35 Hct, (36.0-46.0) 42.4 % 01/15/25, 16:35 Plt Count, (130-400) 237 10^3/uL 01/15/25, 16:35 Complete Metabolic Panel: 2 Sodium, (136-145) 139 mmol/L 01/15/25, 16:35 Potassium, (3.5-5.1) 4.0 mmol/L 01/15/25, 16:35 Chloride, (98-107) 104 mmol/L 01/15/25, 16:35 Carbon Dioxide, (21.0-32.0) 25.4 mmol/L 01/15/25, 16 :35 BUN, (7-18) 8 mg/dL 01/15/25, 16:35 Creatinine, (0.55-1.02) 0.7 mg/dL 01/15/25, 16:35 Est GFR (CKD-EPI 2020), (mL/min/1.73m2) 121.49 01/15/25, 16:35 Calcium, (8.5-10.1) 9.1 mg/dL 01/15/25, 16:35 Albumin, (3.4-5.0) 2.9 g/dL L 01/15/25, 16:35 Glucose, (74-106) 75 mg/dL 01/15/25, 16:35 Liver Function Panel: 2 ALT, (14-59) 20 U/L 01/15/25, 16:35 AST, (15-37) 16 U/L 01/15/25, 16:35 Anesthesia Assessment and Plan Anesthesia History Personal History: No History of Anesthesia Complications Family History: No Family History of Anesthesia Complications Exercise Tolerance Exercise Tolerance: Metabolic Equivalents>4 Cardiac & Pulmonary Exam Cardiac Exam: Normal S1/S2 Heart Sounds Pulmonary Exam: Clear Bilateral Breath Sounds Implantable Cardiac Device Does patient have a Pacemaker or an ICD?: No Airway Exam Known Difficult Airway: No Mallampati Class: 2 Mouth Opening: Normal (> 3cm) Thyromental Distance: Greater than 3 cm Neck Range of Motion: Full ROM Neck Circumference: Normal Teeth Condition: Normal Dentition ASA Classification ASA Score: ASA 2 Emergency Case?: No NPO Status NPO Status: Full Stomach Status Status: Confirmed Anesthesia Plan Resuscitation Status: Full Code Anesthesia Technique: Labor Epidural Airway Planned: Natural Airway Monitors Used: Standard Monitors
--- NOTE | 2025-01-16 02:31 | ANES.NEUR_ITS ---
Epidural/Spinal Catheter Date Performed: 01/16/25 Procedure Start: 02:13 Procedure Stop: 02:32 Requesting Provider: Aby Grayson Procedure Location: Obstetrics Reason Performed: Labor Epidural Standard Monitors Applied: Blood Pressure, SpO2 and See EMR for corresponding vital signs Patient Position: Sitting Sedation Given (Indicate Dose Given): No Sedation given Patient Mental Status: Awake Sterility: Hand Hygiene, Surgical Cap, Surgical Mask, Sterile Gloves, Sterile Drape/Sheet and Chlorhexidine Procedure Location: L3-L4 Interspace Epidural Needle: Tuohy 18 Gauge Needle Length: 3.5 Inch Needle Approach: Midline Epidural Procedure: Skin Prepped, Sterile Drape Placed, 1% Lidocaine to skin and subcutaneous tissue with 25G needle, Tuohy Needle placed, MORALES to Saline Used, Epidural Catheter Placed, Negative Heme, Negative CSF Flow and Tuohy Needle Removed Catheter Placed?: Catheter Placed Test Dose (Indicate Dose Given): 3ml 1.5% Lidocaine with 1:200K Epinephrine Given and Negative Test Dose Loss of Resistance Depth (cm): 6 Catheter depth at skin (cm): 12 Dressing: [place] Dressing Placed, Mastisol Used and Dressing reinforced with Tape Epidural Pr ovider Bolus (Indicate Dose Given): Total bolus dose given in 3-5 ml divided doses and Total Ropivacaine 0.1% with Fentanyl 2mcg/ml Given from pump. (ml) Dose:: 5ml x2 Additives (Indicate Dose Given ): None Infusion Medication: Medication Infusion Began Medication Infusion: Ropivacaine 0.1% with Fentanyl 2mcg/ml Maintenance Infusion Rate (ml/hour): 10 PCEA Bolus Dose (ml): 5 Post Procedure Pain score (0-10): 0 Block Level: N/A Paresthesia: None Ultrasound: Not Used Number of Attempts (See previous attempts in note section): 1 Procedure Tolerated: No Complications and Patient tolerated well Procedure Outcome: Successful Procedure Comment:: Procedure straight forward. PCEA education given, questions answered. Good relief bilaterally after 2nd dose. Motor 5/5. Performed By: Derek Worrell
--- NOTE | 2025-01-16 02:37 | W.PM.OBNL1 ---
Date of service: 01/16/25 Time of Service: 02:37 Informed Consent Informed Consent: Risk,Benefits,Alternatives Discussed (AROM or continued observation of labor pattern) Pelvic Exam Dilation: 6 Effacement (%): 100 station: 0 Cervix Position: mid Consistency: soft Vaginal Exam Presentation: Cephalic Comments: intact membranes. Bloody show noted. Roxane prefers waiting for AROM Contractions Monitor Mode: External Contraction Frequency(min): ever 2-3 Contraction Duration(sec): 60-80 Intensity: Strong Fetus A Monitor: External (US) Heart Rate Baseline: 120 Presentation: Cephalic Variability: Moderate (6-25 BPM) Categories: Category I FHR Rhythm: Regular Accelerations: 15 X 15 Decelerations: None Amniotic Membrane Status: Intact Assessment and Plan Assessment and plan (1) Spontaneous onset of labor: Status: Acute Assessment and plan: Epidural placed by Derek Worrell CRNA. Rest encouraged and will recheck when appropriate. Anticipate , Objective Abnormal lab results 01/15/25 Range/Units 16:35 Absolute Neutrophils 7.71 H (1.2-6.7) 10^3/uL Absolute Monocytes 0.84 H (0.1-0.8) 10^3/uL Alkaline Phosphatase 245 H (46-116) U/L Albumin 2.9 L (3.4-5.0) g/dL Temp Pulse Resp BP Pulse Ox 97.5 F L 100 H 18 117/68 97 01/16/25 00:35 01/16/25 02:36 01/16/25 00:35 01/16/25 02:36 01/16/25 02:36 Laboratory Results WBC 10.56 10^3/uL (4.4-10.8) 01/15/25 16:35 RBC 4.54 10^6/uL (3.93-5.22) 01/15/25 16:35 Hgb 13.9 g/dL (11.2-15.7) 01/15/25 16:35 Hct 42.4 % (36.0-46.0) 01/15/25 16:35 MCV 93 fL (80-95) 01/15/25 16:35 MCH 30.6 pg (27.0-33.0) 01/15/25 16:35 MCHC 32.8 % (32.0-36.0) 01/15/25 16:35 RDW 13.9 % (11.7-14.6) 01/15/25 16:35 Plt Count 237 10^3/uL (130-400) 01/15/25 16:35 MPV 10.8 fL (8.0-11.0) 01/15/25 16:35 Immature Gran % 0.4 % 01/15/25 16:35 Neutrophils % 72.9 % 01/15/25 16:35 Lymphocytes % 18.2 % 01/15/25 16:35 Monocytes % 8.0 % 01/15/25 16:35 Eosinophils % 0.2 % 01/15/25 16:35 Basophils % 0.3 % 01/15/25 16:35 Nucleated RBC % 0.0 % (0.0-0.3) 01/15/25 16:35 Absolute Neutrophils 7.71 10^3/uL (1.2-6.7) H 01/15/25 16:35 Absolute Lymphocytes 1.92 10^3/uL (1.2-3.4) 01/15/25 16:35 Absolute Monocytes 0.84 10^3/uL (0.1-0.8) H 01/15/25 16:35 Absolute Eosinophils 0.02 10^3/uL (0.0-0.7) 01/15/25 16:35 Absolute Basophils 0.03 10^3/uL (0.0-0.2) 01/15/25 16:35 Sodium 139 mmol/L (136-145) 01/15/25 16:35 Potassium 4.0 mmol/L (3.5-5.1) 01/15/25 16:35 Chloride 104 mmol/L (98-107) 01/15/25 16:35 Carbon Dioxide 25.4 mmol/L (21.0-32.0) 01/15/25 16:35 Anion Gap 9.6 mmol/L (3-11) 01/15/25 16:35 BUN 8 mg/dL (7-18) 01/15/25 16:35 Creatinine 0.7 mg/dL (0.55-1.02) 01/15/25 16:35 Est GFR (CKD-EPI 2020) 121.49 (mL/min/1.73m2) 01/15/25 16:35 Glucose 75 mg/dL (74-106) 01/15/25 16:35 Uric Acid 3.4 mg/dL (2.6-6.0) 01/15/25 16:35 Calcium 9.1 mg/dL (8.5-10.1) 01/15/25 16:35 Total Bilirubin 0.3 mg/dL (0.2-1.0) 01/15/25 16:35 AST 16 U/L (15-37) 01/15/25 16:35 ALT 20 U/L (14-59) 01/15/25 16:35 Alkaline Phosphatase 245 U/L (46-116) H 01/15/25 16:35 Lactate Dehydrogenase 182 U/L (81-234) 01/15/25 16:35 Total Protein 7.3 g/dL (6.4-8.2) 01/15/25 16:35 Albumin 2.9 g/dL (3.4-5.0) L 01/15/25 16:35 Ur Random Creatinine 24.35 mg/dL 01/15/25 16:30 U Random Total Protein 8.8 mg/dL 01/15/25 16:30 U [place] Prot/Creat Ratio 0.36 01/15/25 16:30 ABO/Rh A Positive 01/15/25 16:35 Antibody Screen NEGATIVE 01/15/25 16:35 Subjective Patient Reports: New Complaints Interval history since last seen: Roxane complained of very strong and painful contractions Results Hemoglobin/Hematocrit: Hgb 13.9 g/dL (11.2-15.7) 01/15/25 16:35 Hct 42.4 % (36.0-46.0) 01/15/25 16:35 Abnormal Lab Findings: Abnormal Labs 01/15/25 16:35 Absolute Neutrophils 7.71 H Absolute Monocytes 0.84 H Alkaline Phosphatase 245 H Albumin 2.9 L
[2025-01-16] MEDS: FentaNYL/ROPIvacaine 2 mcg/ml and 0.1% 200 ML CADD Cassette EP (02:45)
[2025-01-16] MEDS: Lactated Ringers 1,000 ML 75 ML IV (07:05)
[2025-01-16] MEDS: Lactated Ringers 500 ML IV (07:53)
--- NOTE | 2025-01-16 08:40 | PGE_ITS ---
Date of service: 01/16/25 Time of Service: 08:40 Informed Consent Informed Consent: Risk,Benefits,Alternatives Discussed (AROM or continued observation of labor pattern) Pelvic Exam Dilation: 8 Effacement (%): 100 station: 0 Consistency: soft Vaginal Exam Presentation: Cephalic Contractions Monitor Mode: External Contraction Frequency(min): every 2-3 Contraction Duration(sec): 60 Intensity: Moderate/Strong Fetus A Monitor: External (US) Heart Rate Baseline: 120 Presentation: Cephalic Variability: Moderate (6-25 BPM) Categories: Category I FHR Rhythm: Regular Accelerations: 15 X 15 Decelerations: None Amniotic Membrane Status: Ruptured Rupture Method: Artifical Amniotic Fluid: Clear Amount: moderate Date of Membrane Rupture: 01/16/25 Time of Membrane Rupture: 07:00 Assessment and Plan Assessment and plan (1) Spontaneous onset of labor: Status: Acute Assessment and plan: I recommended AROM at this time and possibly intrauterine contraction monitoring due to slow progress. Roxane did agree to AROM. Care will be assumed by Mona Curtis at 0800. Objective Abnormal lab results 01/15/25 Range/Units 16:35 Absolute Neutrophils 7.71 H (1.2-6.7) 10^3/uL Absolute Monocytes 0.84 H (0.1-0.8) 10^3/uL Alkaline Phosphatase 245 H (46-116) U/L Albumin 2.9 L (3.4-5.0) g/dL Temp Pulse Resp BP Pulse Ox 98.2 F 98 H 16 103/68 94 01/16/25 07:58 01/16/25 08:38 01/16/25 07:58 01/16/25 08:00 01/16/25 08:38 Laboratory Results WBC 10.56 10^3/uL (4.4-10.8) 01/15/25 16:35 RBC 4.54 10^6/uL (3.93-5.22) 01/15/25 16:35 Hgb 13.9 g/dL (11.2-15.7) 01/15/25 16:35 Hct 42.4 % (36.0-46.0) 01/15/25 16:35 MCV 93 fL (80-95) 01/15/25 16:35 MCH 30.6 pg (27.0-33.0) 01/15/25 16:35 MCHC 32.8 % (32.0-36.0) 01/15/25 16:35 RDW 13.9 % (11.7-14.6) 01/15/25 16:35 Plt Count 237 10^3/uL (130-400) 01/15/25 16:35 MPV 10.8 fL (8.0-11.0) 01/15/25 16:35 Immature Gran % 0.4 % 01/15/25 16:35 Neutrophils % 72.9 % 01/15/25 16:35 Lymphocytes % 18.2 % 01/15/25 16:35 Monocytes % 8.0 % 01/15/25 16:35 Eosinophils % 0.2 % 01/15/25 16:35 Basophils % 0.3 % 01/15/25 16:35 Nucleated RBC % 0.0 % (0.0-0.3) 01/15/25 16:35 Absolute Neutrophils 7.71 10^3/uL (1.2-6.7) H 01/15/25 16:35 Absolute Lymphocytes 1.92 10^3/uL (1.2-3.4) 01/15/25 16:35 Absolute Monocytes 0.84 10^3/uL (0.1-0.8) H 01/15/25 16:35 Absolute Eosinophils 0.02 10^3/uL (0.0-0.7) 01/15/25 16:35 Absolute Basophils 0.03 10^3/uL (0.0-0.2) 01/15/25 16:35 Sodium 139 mmol/L (136-145) 01/15/25 16:35 Potassium 4.0 mmol/L (3.5-5.1) 01/15/25 16:35 Chloride 104 mmol/L (98-107) 01/15/25 16:35 Carbon Dioxide 25.4 mmol/L (21.0-32.0) 01/15/25 16:35 Anion Gap 9.6 mmol/L (3-11) 01/15/25 16:35 BUN 8 mg/dL (7-18) 01/15/25 16:35 Creatinine 0.7 mg/dL (0.55-1.02) 01/15/25 16:35 Est GFR (CKD-EPI 2020) 121.49 (mL/min/1.73m2) 01/15/25 16:35 Glucose 75 mg/dL (74-106) 01/15/25 16:35 Uric Acid 3.4 mg/dL (2.6-6.0) 01/15/25 16:35 Calcium 9.1 mg/dL (8.5-10.1) 01/15/25 16:35 Total Bilirubin 0.3 mg/dL (0.2-1.0) 01/15/25 16:35 AST 16 U/L (15-37) 01/15/25 16:35 ALT 20 U/L (14-59) 01/15/25 16:35 Alkaline Phosphatase 245 U/L (46-116) H 01/15/25 16:35 Lactate Dehydrogenase 182 U/L (81-234) 01/15/25 16:35 Total Protein 7.3 g/dL (6.4-8.2) 01/15/25 16:35 Albumin 2.9 g/dL (3.4-5.0) L 01/15/25 16:35 Ur Random Creatinine 24.35 mg/dL 01/15/25 16:30 U Random Total Protein 8.8 mg/dL 01/15/25 16:30 U [place] Prot/Creat Ratio 0.36 01/15/25 16:30 ABO/Rh A Positive 01/15/25 16:35 Antibody Screen NEGATIVE 01/15/25 16:35 Vital Signs Reviewed: Yes Subjective Patient Reports: New Complaints Interval history since last seen: Roxane has been experiencingmore pressure. Results Hemoglobin/Hematocrit: Hgb 13.9 g/dL (11.2-15.7) 01/15/25 16:35 Hct 42.4 % (36.0-46.0) 01/15/25 16:35 Abnormal Lab Findings: Abnormal Labs 01/15/25 16:35 Absolute Neutrophils 7.71 H Absolute Monocytes 0.84 H Alkaline Phosphatase 245 H Albumin 2.9 L
--- NOTE | 2025-01-16 09:24 | W.PM.OBNL1 ---
Date of service: 01/16/25 Time of Service: 09:00 Pelvic Exam Dilation: 10 station: +3 Contractions Monitor Mode: External Contraction Frequency(min): q3 Intensity: Moderate/Strong Fetus A Monitor: External (US) Heart Rate Baseline: 130 Presentation: Cephalic Variability: Moderate (6-25 BPM) Categories: Category I Accelerations: Present (scalp stim response w/accel) Decelerations: Early Amniotic Membrane Status: Ruptured Assessment and Plan Assessment and plan (1) Spontaneous onset of labor: Status: Acute Assessment and plan: A: On-shift CNM note beginning 2nd stage, huddle completed no increased risks for SD or PPH, IV access patent category 1 tracing, effective epidural afebrile, normotensive, FOB bedside effectively supportive P: pt requests to labor down passively for another 20 minutes anticipate Objective Vital Signs Reviewed: Yes Subjective Interval history since last seen: feeling increased rectal pressure, epidural is effective, using [employer]
--- NOTE | 2025-01-16 11:17 | OBCE_ITS ---
Date of service: 01/16/25 Time of Service: 11:17 Assessment and Plan Assessment and plan (1) 39 weeks gestation of : Assessment and plan: 29 yo at 39 weeks as dated by LMP equal to 8 wk US (DARA: 01/17/2025) - Rh+ / Rub I / VZV I / GBS neg - presented to L&D in active labor on 01/15/2025; has not required augmentation - Has an epidural - AROM as of 0700 on 01/16 - - - - - - - - - - - - - - - - 01/16/2025 (Jose J): The clinical haematologist came to speak with me regarding the patient's pushing efforts. The patient had been pushing an hour and a half. The clinical haematologist is confident that the patient has capacity to complete a vaginal delivery and feels reassured by the patient's pushing efforts; however, given the length of time of pushing and slow progression, she requests the patient be consented for possible vacuum-assistance. I introduced myself to the patient at bedside, and we had a thorough discussion regarding the potential need for vacuum. We discussed that risks include, but are not limited to, severe lacerations to both maternal and tissues, bleeding on the baby's bran and scalp, bruising, etc. If vacuum fails, then there is a need for section. Patient verbalized understanding and would like to continue pushing efforts for now. I will remain on unit and nearby. - - - - - - - - - - - - - - - - (2) Essential hypertension: Status: Acute (3) Raynaud's disease without gangrene: History of Present Illness Narrative: 29 yo at 39 weeks as dated by LMP equal to 8 wk US (DARA: 01/17/2025) presented to L&D in active labor on 01/15/2025. Review of Systems All systems reviewed & are unremarkable except as noted in HPI and below PFSH All Active Problems (Updated 01/16/25 @ 11:25 by Judith Lux, DO) Spontaneous onset of labor (Acute) Essential hypertension (Acute) (Acute) Elevated blood pressure reading in office without diagnosis of hypertension (Acute) Generalized anxiety disorder (Acute) no medications Medical History (Updated 01/16/25 @ 11:25 by Judith Lux DO) 39 weeks gestation of 27 weeks gestation of Hearing disorder (12/18/01) ENT EVAL 12/18/01 Raynaud's disease without gangrene one toe on each foot, rarely an issue Right ovarian cyst Surgical History Status post laparoscopy Operative laparoscopy with right ovarian cystectomy Family History Mother Essential hypertension Diabetes Personal history of malignant neoplasm UTERINE Hyperlipidemia Grandfather Essential hypertension Personal history of malignant neoplasm THYROID Hyperlipidemia Grandfather Essential hypertension Grandmother Essential hypertension Hyperlipidemia Cancer Grandmother Diabetes Hyperlipidemia Father Hypertension Social History Smoking/Tobacco Use Status: Never Smoking risk assessment performed?: Yes Alcohol Intake: former Drug use: Never Substance use type: does not use Household members: spouse Housing: house Pets and animals: Yes Pets and animals: cat(s) and dog(s) What type of physical activity do you participate in: walking Frequency: 1-2 times per week Special susan needs: No Agree to transfusion: Yes Do you feel safe at home: Yes Do you feel safe in your relationship?: Yes History History 2 1 Para 0 Hx # Term Pregnancies 0 Multiple births 0 Hx # Pregnancies 0 Ectopic pregnancies 0 AB induced 0 Hx Number of Living Children 0 AB spontaneous 0 Exam Narrative Exam Narrative: general: Well nourished female, pushing and uncomfortable with contractions pulm: No overt respiratory distress abd: gravid, non-tender (tolerating monitoring straps) ext: trace edema noted equally bilaterally : Baby on the perineum; able to visualize head without labia when pushing Results Last Vital Signs Temp 97.9 F 01/16/25 11:01 Pulse 134 H 01/16/25 10:46 Resp 16 01/16/25 10:07 BP 121/74 01/16/25 10:07 Pulse Ox 98 01/16/25 10:46 Labs 01/15/25 16:35 01/15/25 16:35 Labs: Laboratory Results - last 24 hr 01/15/25 01/15/25 16:30 16:35 WBC 10.56 RBC 4.54 Hgb 13.9 Hct 42.4 MCV 93 MCH 30.6 MCHC 32.8 RDW 13.9 Plt Count 237 MPV 10.8 Immature Gran % 0.4 Neutrophils % 72.9 Lymphocytes % 18.2 Monocytes % 8.0 Eosinophils % 0.2 Basophils % 0.3 Nucleated RBC % 0.0 Absolute Neutrophils 7.71 H Absolute Lymphocytes 1.92 Absolute Monocytes 0.84 H Absolute Eosinophils 0.02 Absolute Basophils 0.03 Sodium 139 Potassium 4.0 Chloride 104 Carbon Dioxide 25.4 Anion Gap 9.6 BUN 8 Creatinine 0.7 Est GFR (CKD-EPI 2020) 121.49 Glucose 75 Uric Acid 3.4 Calcium 9.1 Total Bilirubin 0.3 AST 16 ALT 20 Alkaline Phosphatase 245 H Lactate Dehydrogenase 182 Total Protein 7.3 Albumin 2.9 L Ur Random Creatinine 24.35 U Random Total Protein 8.8 U [place] Prot/Creat Ratio 0.36 ABO/Rh A Positive Antibody Screen NEGATIVE
[2025-01-16] MEDS: Oxytocin/Normal Saline 30 UNIT/500 ML BAG 334 UNITS IV (11:53)
[2025-01-16] MEDS: miSOPROStol 200 MCG TAB (11:58)
[2025-01-16] MEDS: Methylergonovine 0.2 MG/ML VIAL (12:03)
[2025-01-16] MEDS: Lidocaine 1% Multi-Dose 10 ML VIAL (12:40)
--- NOTE | 2025-01-16 13:02 | OBVDS_ITS ---
Date of service: 01/16/25 Time of Service: 13:02 OB Labor/ Delivery Information Baby A Delivery Delivery Method: Spontaneaous Presentation: Cephalic Cephalic Position: Vertex Vertex Position: Right Occipital Anterior Breech Position: N/A Cord Description-Baby A: 3 Vessels and Other (right nuchal hand) Amniotic Fluid: Clear Quantitative Blood Loss: 700 Delivery Outcome: Liveborn Transferred: Remains with Mother Note: Pt began coached pushing at 0930, with practice she gained increasing effectiveness. Using the squat bar to brace her feet and pulling on a sheet she brought the head to the perineum. Tracing moved from category 1 to category 2 during 2nd stage with baseline up to 150's and minimal variability, Dr. Lux made aware and she spoke with patient about risks and benefits of vacuum assisted delivery should this become indicated. Pt continued with strong efforts, and after the 3rd 2nd stage huddle at which rising risk for SD and PPH were identified physician remained in room until delivery was accomplished. of a vigorous male over attempted intact perineum, shoulders delivered with ease and right nuchal hand was noted, infant to mother's arms immediately. pitocin IV bolus begun, cord clamped and cut by FOB at 5 minutes of age, cord blood collected. Key placenta intact with trailing membranes delivered, 3VC. Moderate lochia noted w/fundus firm below umbilicus, miso 600 mcg given SL and methergine 0.2 mg IM given. 2nd degree vaginal and perineal laceration repaired under epidural and local anesthesia with 3.0 Vicryl, straight cath'ed for 250 ml clear urine and lochia decreased to scant. Pt maintained stable BP and pulse <110, strong family bonding observed. Apgars 8/10, weight 3525 gms. Providers Nurse Repairer Maintenance Building: [facility] Nurse: Madhu Storm Nurse: Tiana Walker Labor/Delivery Information Number of Babies in Womb: 1 Steroids Given: None Reason Steroids Not Administered: N/A Group Beta Strep: Negative Antibiotics Administered: No Rubella Status: Immune Blood Type: A+ Varicella Immunity: Immune Shoulder Dystocia: No Stages of Labor Onset of Labor Date: 01/15/25 Complete Dilatation Date: 01/16/25 Complete Dilatation Time: 09:00 ROM Baby A: 01/16/25 ROM Baby A: 07:00 Delivery Date-Baby A: 01/16/25 Infant Delivery Time-Baby A: 11:48 Labor Stage 2 Duration: 2 hours and 48 minutes Placenta Delivery Date-Baby A: 01/16/25 Placenta Delivery Time-Baby A: 11:55 Labor-Stage 3 Duration: 7 minutes Placenta Status: Delivered Baby A Infant Gender: Male Gestational Status: Term (39-41.6 wks) Gestational Age in Weeks/Days: 39 Weeks and 6 Days weight: 7 lb 12.341 oz Weight Comment: 3525 gms Score-1 Minute Interval(Baby A) Heart Rate-1 minute: 100 BPM or Greater Respiratory Effort- 1 minute: Slow Respiration/Weak Cry Muscle Tone-1 minute: Active Movement Reflex Response-1 minute: Prompt Response Color-1 minute: Bluish Hands or Feet Total Score-1 minute: 8 Score-5 Minute Interval(Baby A) Heart Rate- 5 minute: 100 BPM or Greater Respiratory Effort-5 minute: Spontaneous/Strong Cry Muscle Tone-5 minute: Active Movement Reflex Response-5 minute: Prompt Response Color-5 minute: Carlyss/No Cyanosis Total Score- 5 minute: 10
[2025-01-16] MEDS: Normal Saline Flush 10 ML SYR IVP (13:17)
[2025-01-16] MEDS: Ondansetron 4 MG/2 ML VIAL IVP (13:17)
[2025-01-16] MEDS: Lactated Ringers 1,000 ML 250 ML IV (13:21)
--- NOTE | 2025-01-16 15:35 | W.ANESNEU ---
Epidural/Spinal Cath. Removal Date Performed: 01/16/25 Procedure Time: 15:36 Catheter Removal Type: Epidural Catheter Procedure Location: Obstetrics Patient Position: Sitting Catheter Removal Procedure: Dressing Removed, Catheter Removed without Resistance and Catheter Tip Intact Paresthesia: None Procedure Tolerated: No Complications and Patient tolerated well Procedure Outcome: Successful Performed By: Vickey Robbins
[2025-01-16] MEDS: ceFAZolin 2 GM/50 ML BAG IVPB (15:38)
--- NOTE | 2025-01-16 15:40 | W.ANESPOSTOP ---
Postoperative Evaluation Date, Time and Location Date Performed: 01/16/25 Time Performed: 15:40 Patient Location: Obstetrics Vital Signs Most Recent Imported Vital Signs: Most Recent Vital Signs Temp Pulse Resp BP Pulse Ox 37.5 C 93 H 16 111/67 97 01/16/25 14:55 01/16/25 15:03 01/16/25 14:55 01/16/25 15:03 01/16/25 11:37 Pain Score Most Recent Pain Score: Most Recent Pain Score Pain Level 2 01/16/25 05:30 Assessment Mental Status: Awake (Alert & Oriented to Patient Baseline) Airway and Respiratory Function: Patent airway with normal (patient baseline) respiratory exam Cardiovascular Function: Hemodynamically Stable Hydration Status: Adequately Hydrated Nausea & Vomiting: No Nausea or Vomiting Pain: Pt. Denies Any Pain (Generalized muscle soreness from labor) Peripheral Nerve Block: Patient did not receive a nerve block
[2025-01-16] MEDS: Dibucaine 1% 28 GM TUBE TP (17:07)
[2025-01-16] MEDS: Acetaminophen 325 MG TAB 650 MG PO ×2 (17:08→21:03)
[2025-01-16] MEDS: Hamamelis Leaf/Glycerin 100 EACH BOX PR (17:08)
[2025-01-16] MEDS: Ibuprofen 600 MG TAB PO (17:10)
[2025-01-17] VITALS: BP 119/87; PULSE 110; RESP 18; TEMP 36.8; O2SAT 98
[2025-01-17] MEDS: Docusate Sodium 100 MG CAP PO ×2 (00:12→17:55)
[2025-01-17] MEDS: Ibuprofen 600 MG TAB PO ×3 (00:12→17:54)
[2025-01-17] MEDS: Acetaminophen 325 MG TAB 650 MG PO (03:45)
--- NOTE | 2025-01-17 07:05 | OBPPV_ITS ---
Date of service: 01/17/25 Time of Service: 07:05 Assessment and Plan Assessment and plan (1) Term delivered: Status: Acute Assessment and plan: A: PPD#1, afebrile, normotensive, downs in place d/t inability to void last night Pt satisfied with experience P: Remove downs after 12 hrs and assess for adequate ability to empty bladder Plan for discharge tomorrow on PPD#2 Routine PP and support Pt planning POP's for BCM starting at 4 wks PP Subjective Subjective Patient comments: Pain well controlled, Tolerating diet and Flatus present Patient's Mood: tired, relieved baby status: Doing well, Nursing well, Rooming in and Strong Bonding Observed [place] feeding status: Exclusively breast feeding Exam Physical Exam Vital signs: Temp Pulse Resp BP Pulse Ox 98.3 F 76 16 112/82 97 01/16/25 20:10 01/16/25 20:10 01/16/25 20:10 01/16/25 20:10 01/16/25 20:10 Vital Signs Reviewed: Yes Constitutional Constitutional: no acute distress and cooperative HEENT Exam HEENT Exam: Normal Neck Exam Neck Exam: Normal Breast Exam Bilateral: Breast Exam: Normal and Soft Nipple Exam: Normal and Uninjured Respiratory Exam Respiratory Exam: Normal Cardiovascular Exam Cardiovascular Exam: Normal Abdominal Exam Abdomen: Other (soft, nontender) Fundal Exam Fundus: Below Umbilicus and Firm Rectal Exam Rectal Exam: Normal Exam Perineum: Edematous and Repair Intact Comments: downs in place at time of exam Extremities Exam Extremity Exam: Normal, Full ROM and Warm to Touch Back/Spine/Pelvis Exam Back Exam: Normal Skin Exam Skin Exam: Normal Neurological Exam Neurological Exam: Normal Psychiatric Exam Psychiatric Exam: Normal
[2025-01-17 08:56] VITALS: BP 111/76; PULSE 76; RESP 16; TEMP 36.8; O2SAT 97
--- NOTE | 2025-01-17 10:31 | NUR.NOTE ---
Nursing Note: This RN has offered pt pain meds twice. Pt refused. Instructed pt to just let this RN know if she changes her mind and reviewed Pain Scale theory with her. Pt rates her pain 2/10 in bed.
--- NOTE | 2025-01-17 14:00 | NUR.NOTE ---
Nursing Note: Pt showered and is independent with cassie care.
[2025-01-17 19:53] VITALS: BP 113/86; PULSE 79; RESP 16; TEMP 36.6; O2SAT 97
[2025-01-18] MEDS: Dibucaine 1% 28 GM TUBE TP (05:57)
[2025-01-18 09:06] VITALS: BP 114/83; PULSE 99; RESP 18; TEMP 36.7; O2SAT 96
--- NOTE | 2025-01-18 10:48 | DSE_ITS ---
Date of service: 01/18/25 Time of Service: 10:48 DS: Diagnosis Discharge Diagnosis (1) Term delivered: Status: Acute Asessment and Plan: - Normal transition - Discharge home today - Discussed home visiting nurse availability, she declines referral - warnings and education reviewed, handouts given - Contraception: planning to use POPs, Rx to be given at 2 or 6 week visit - Discussed sleep hygiene and mental health transitions in the early period - Encouragement and support given for , discussed availability of IBCLC services - Follow-up: 1 and 7 days for BP checks, 2 and 6 weeks for visit with CNM, or sooner PRN (2) Preeclampsia: Status: Acute Asessment and Plan: - Normotensive since delivery, diagnosis made during labor. - Will plan to repeat CBC and CMP now. If normal, discharge home. - Discussed natural course of pre-eclampsia, and general resolution with delivery except for atypical cases where pre-eclampsia can worsen in the 6 weeks after . - PEC warning signs discussed. - Blood pressure check tomorrow and again in 7 days. (3) Second degree laceration of perineum, delivered, current hospitalization: Status: Acute Asessment and Plan: - Healing well Discharge Plan Disposition Patient Disposition: Home Condition: Improving Discharge Details Reason For Visit: Early Labor Admit Date/Time: 01/15/25 18:02 Admit Provider: Aby Grayson Attending Provider: Aby Grayson Primary Care Provider: Rafael Cronin Hospital Course Hospital Course: Pt delivered under epidural anesthesia on HD#2, course noted for elevated temperature immediately addressed with giving Ancef 2 gms IV, followed by bladder atony addressed with placement of downs catheter x12 hrs after wich pt has been able to void without difficulty. Recommended tp plan for discharge on PPD#2 to allow for furhter observation and support. Recommendations for Follow Up Recommended tests to be ordered by follow up provider: None Home Meds and New Rx's Prescriptions: No Action Classic 28 mg iron- 800 mcg tablet PO DAILY Discharge Instructions Instructions: Sex After Having a Baby, Normal Bleeding After Having a Baby Additional Instructions: Please return to the center on 01/19 to the office on 01/27 for a blood pressure check. Please keep your 2 and 6 wk appointments with the midwives, call for any and all concerns. Stand Alone Forms: BC Instructions, Post Vaginal Deliver Activity:: Activity as Tolerated Equipment/Supplies:: No Equipment Needed Diet:: Normal Diet OB:DS Summary Summary Vaginal Delivery Method: Spontaneaous Laceration Description: Perineal Laceration Extension: Second Degree Contraception Discussed Contraception Discussed: Yes Contraceptive Plan: Control Pill/Patch, Carmen Gender-Baby A: Male weight: 7 lb 12.341 oz Status at Discharge Functional status at discharge: independent ambulation Overall status at discharge: patient is progressing back to baseline Mental Status: mental status grossly normal Speech and Movement: speech and movement normal Mood: congruent mood Affect: normal affect Exam Physical Exam Vital signs: Temp Pulse Resp BP Pulse Ox 98.1 F 99 H 18 114/83 96 01/18/25 09:06 01/18/25 09:06 01/18/25 09:06 01/18/25 09:06 01/18/25 09:06 Narrative: PE: General: well-appearing, NAD Neck: supple, NT Respiratory: CTAB, unlabored CV: NST without murmur Breast: nipples intact and without abrasions GI: soft, NT : fundus firm at 1 FB below umbilicus, Perineum without much edema / well- approximated MSK: no homans, no clonus, trace bilateral pedal edema Neuro: patellar DTRs + 1 bilaterally Integument: warm, dry, pink Psychiatric: cooperative, appropriate mood and affect ROS: Constitutional: denies fever, denies chills, pain manageable with PO meds HEENT: rare floaters in vision Respiratory: denies SOB Cardiovascular: denies chest pain, denies dizziness when moving about the room Breast: occ. nipple pain with latch Gastrointestinal: + flatus, no BM since delivery, tolerating advanced diet Urinary: denies dysuria, voiding spontaneously OB: lochia is lessening, after pains are manageable Neurologic: denies headache Psychiatric: some anxiety, denies depression, sleep okay but in short intervals secondary to infant care PFSH All Active Problems Second degree laceration of perineum, delivered, current hospitalization (Acute) Preeclampsia (Acute) Term delivered (Acute) Elevated blood pressure reading in office without diagnosis of hypertension (Acute) Generalized anxiety disorder (Acute) no medications Medical History Essential hypertension Spontaneous onset of labor 39 weeks gestation of 27 weeks gestation of Hearing disorder (12/18/01) ENT EVAL 12/18/01 Raynaud's disease without gangrene one toe on each foot, rarely an issue Right ovarian cyst Surgical History Status post laparoscopy Operative laparoscopy with right ovarian cystectomy Family History Mother Essential hypertension Diabetes Personal history of malignant neoplasm UTERINE Hyperlipidemia Grandfather Essential hypertension Personal history of malignant neoplasm THYROID Hyperlipidemia Grandfather Essential hypertension Grandmother Essential hypertension Hyperlipidemia Cancer Grandmother Diabetes Hyperlipidemia Father Hypertension Social History Smoking/Tobacco Use Status: Never Smoking risk assessment performed?: Yes Alcohol Intake: former Drug use: Never Substance use type: does not use Household members: spouse Housing: house Pets and animals: Yes Pets and animals: cat(s) and dog(s) What type of physical activity do you participate in: walking Frequency: 1-2 times per week Special susan needs: No Agree to transfusion: Yes Do you feel safe at home: Yes Do you feel safe in your relationship?: Yes History History 1 Para 0 Hx # Term Pregnancies 0 Multiple births 0 Hx # Pregnancies 0 Ectopic pregnancies 0 AB induced 0 Hx Number of Living Children 0 AB spontaneous 0 DS: Data Vitals/I&O Vitals and I&O: Vital Signs Temperature 98.1 F 01/18/25 09:06 Temperature 97.9 F 01/15/25 18:05 Temperature Source Oral 01/18/25 09:06 Pulse 99 H 01/18/25 09:06 Pulse 90 01/15/25 18:05 Pulse Rhythm Regular 01/18/25 09:06 Respiratory Rate 18 01/18/25 09:06 Respiratory Depth Normal 01/17/25 19:53 Blood Pressure 114/83 01/18/25 09:06 Blood Pressure 128/93 01/15/25 18:05 Blood Pressure Mean 93 01/18/25 09:06 Pulse Oximetry 96 01/18/25 09:06 Oxygen Delivery Method Room Air 01/15/25 16:42 Oxygen Flow Rate 0 01/15/25 16:42 Pain Level 3 01/16/25 17:10 Comment Pt was standing at bedside and had just showered etc. 01/17/25 00:00 Intake & Output 01/17/25 01/17/25 01/18/25 11:59 23:59 11:59 Output Total 2250 / 2950 700 / 2950 Balance -2250 / -2950 -700 / -2950 Output: Urine 2250 / 2950 700 / 2950 Other: Urine Color Yellow Urine Appearance Cloudy Urine Odor None Comment Pt tolerated well. PO fluids encouraged Data Completed and Pending Pending Labs at Discharge: 01/15/25 01/15/25 01/18/25 16:30 16:35 10:44 WBC 10.56 RBC 4.54 Hgb 13.9 Hct 42.4 MCV 93 MCH 30.6 MCHC 32.8 RDW 13.9 Plt Count 237 MPV 10.8 Immature Gran % 0.4 Neutrophils % 72.9 Lymphocytes % 18.2 Monocytes % 8.0 Eosinophils % 0.2 Basophils % 0.3 Nucleated RBC % 0.0 Absolute Neutrophils 7.71 H Absolute Lymphocytes 1.92 Absolute Monocytes 0.84 H Absolute Eosinophils 0.02 Absolute Basophils 0.03 Sodium 139 Pending Potassium 4.0 Pending Chloride 104 Pending Carbon Dioxide 25.4 Pending Anion Gap 9.6 Pending BUN 8 Pending Creatinine 0.7 Pending Est GFR (CKD-EPI 2020) 121.49 Pending Glucose 75 Pending Uric Acid 3.4 Calcium 9.1 Pending Total Bilirubin 0.3 Pending AST 16 Pending ALT 20 Pending Alkaline Phosphatase 245 H Pending Lactate Dehydrogenase 182 Total Protein 7.3 Pending Albumin 2.9 L Pending Ur Random Creatinine 24.35 U Random Total Protein 8.8 U [place] Prot/Creat Ratio 0.36 ABO/Rh A Positive Antibody Screen NEGATIVE 01/18/25 Unknown WBC Pending RBC Pending Hgb Pending Hct Pending MCV Pending MCH Pending MCHC Pending RDW Pending Plt Count Pending MPV Pending Immature Gran % Neutrophils % Lymphocytes % Monocytes % Eosinophils % Basophils % Nucleated RBC % Absolute Neutrophils Absolute Lymphocytes Absolute Monocytes Absolute Eosinophils Absolute Basophils Sodium Potassium Chloride Carbon Dioxide Anion Gap BUN Creatinine Est GFR (CKD-EPI 2020) Glucose Uric Acid Calcium Total Bilirubin AST ALT Alkaline Phosphatase Lactate Dehydrogenase Total Protein Albumin Ur Random Creatinine U Random Total Protein U [place] Prot/Creat Ratio ABO/Rh Antibody Screen
[2025-01-18 11:01] LABS: HCT 31.5 % (36.0-46.0); MCH 30.8 pg (27.0-33.0); MCHC 32.7 % (32.0-36.0); MCV 94 fL (80-95); MPV 10.4 fL (8.0-11.0); Platelet Count 170 10^3/uL (130-400); RBC 3.34 10^6/uL (3.93-5.22); RDW 14.5 % (11.7-14.6); RDW-SD 49.9 fL; WBC 14.17 10^3/uL (4.4-10.8)
[2025-01-18 11:03] LABS: HGB 10.3 g/dL (11.2-15.7)
[2025-01-18 11:17] LABS: ALT 22 U/L (14-59); AST 32 U/L (15-37); Albumin 2.2 g/dL (3.4-5.0); Alkaline Phosphatase 148 U/L (46-116); Anion Gap 6.8 mmol/L (3-11); BUN 9 mg/dL (7-18); Bilirubin, Total 0.1 mg/dL (0.2-1.0); CO2 29.2 mmol/L (21.0-32.0); Calcium 8.4 mg/dL (8.5-10.1); Chloride 104 mmol/L (98-107); Glucose 89 mg/dL (74-106); Potassium 4.3 mmol/L (3.5-5.1); Sodium 140 mmol/L (136-145); Total Protein 6.0 g/dL (6.4-8.2)
== END 2025-01-18 12:05 | disposition home or self-care (01) | DRG 807 ==
LOC: BCD 01-16 10:40 → OBS 01-16 10:41 → BCD 01-16 12:10 → OBS 01-16 12:10
PROVIDERS: Advanced Practice Midwife; Admitting Provider Advanced Practice Midwife; PCP Nurse Practitioner Family; Visit Provider Advanced Practice Midwife
DX: O11.4 Pre-existing hypertension with pre-eclampsia, complicating childbirth (principal); Z37.0 Single live birth; O99.413 Diseases of the circulatory system complicating pregnancy, third trimester; Z3A.39 39 weeks gestation of pregnancy; I73.00 Raynaud's syndrome without gangrene; O70.1 Second degree perineal laceration during delivery; O69.81X0 Labor and delivery complicated by cord around neck, without compression, not applicable or unspecified
CPT/HCPCS: 80053; 85027; 86850; 86900; 86901; 59025; 82565; 83615; 84156; 84550; 85025; J0690; J2003; J2210; J2405

== ENCOUNTER 2025-01-19 08:57 | Outpatient (CLI) | payer OTHER, SELFPAY ==
[2025-01-19 10:26] VITALS: BP 120/85
== END 2025-01-19 08:58 | disposition home or self-care (01) ==
LOC: BCD 08:57
PROVIDERS: PCP Nurse Practitioner Family; Visit Provider Advanced Practice Midwife
DX: O11.5 Pre-existing hypertension with pre-eclampsia, complicating the puerperium (principal)
CPT/HCPCS: 99211

== ENCOUNTER 2025-01-27 16:08 | Outpatient (REF) | payer OTHER, SELFPAY ==
[2025-01-27 16:56] LABS: Glucose Negative (Negative)
[2025-01-27 17:05] LABS: C & S Indicated? Yes; RBC 20-50 HPF (0-2); WBC >50 HPF (0-5)
== END 2025-01-27 16:09 | disposition home or self-care (01) ==
LOC: LBN 16:08
PROVIDERS: PCP Nurse Practitioner Family; Visit Provider Advanced Practice Midwife
DX: R30.0 Dysuria (principal); R82.89 Other abnormal findings on cytological and histological examination of urine
CPT/HCPCS: 81003; 81015; 87086